=== PATIENT | female | born 1980 | race Caucasian/White ===

== ENCOUNTER 2016-05-24 18:43 | Emergency (ER) | payer SELFPAY ==
[~2016-05-24] VITALS: Ht 157.5 cm; Wt 86.2 kg
[~2016-05-24 18:43] MED LIST: ACHD5005 PO; ALPR.5T PO; ALPR0.5T PO; ALPR1T PO; BPR75T PO; CLON1TAB36 PO; CPR500T PO; CYCL10TA9 PO; DESV100T PO; DESV50TA PO; HYDR1TAB; HYDR1TAB PO; IBP800T PO; LAMO100T69 PO; METR500T PO; NAPR-243 PO; NF-ESOM40C PO; NITR-65 PO; PRAZ2CAP2 PO; PRAZ5CAP PO; PRD20T PO; SULF-222 PO; SULF1TAB38 PO; TOPI50TA37 PO; TRM50T PO; ZOLP10TA PO
--- NOTE | 2016-05-24 19:02 | ED Abdominal Pain ---
General Chief Complaint: Abdominal/GI Problems Stated Complaint: L SIDE ABD PAIN Nursing Triage Note: c/o LLQ abdomen pain x 4 months denies being evaluated by PCP as 'she hasn't been able to get in' Sepsis Screen: No Definite Risk Source of Information: Patient Exam Limitations: No Limitations History of Present Illness Time Seen By Provider: 19:02 Initial Comments 35-year-old female patient presents to the emergency department with complaints of 4 month onset of left lower quadrant abdominal pain. Patient denies nausea, vomiting, diarrhea, constipation, melena, or hematochezia. Denies urinary symptoms. Denies contacting her primary care physician for symptoms. Timing/Duration: Intermittent, Other (4 month onset) Severity/Quality: Aching, Cramping Location: LLQ Radiation: No Radiation Activities at Onset: None Modifying Factors: Worsens With Palpation Allergies and Home Medications Allergies Coded Allergies: clonazepam (Unverified Allergy, Unknown, 11/12/14) tramadol (Verified Allergy, Unknown, HIVES, 11/12/14) sertraline HCl (Verified Adverse Reaction, Mild, Feeling homicidal, ) Home Medications Ondansetron 8 Mg Tab.rapdis, 8 MG PO Q8H PRN for NAUSEA/VOMITING, #10 Ref 0 Prescribed by: MARY ROBBINS on 05/24/162051 Review of Systems Constitutional: No chills, No fever, No malaise Respiratory: No Symptoms Reported Cardiovascular: No Symptoms Reported Gastrointestinal: See HPI, Denies Abdomen Distended, Abdominal Pain, Denies Blood Streaked Stools, Denies Constipated, Denies Diarrhea, Denies Nausea, Denies Poor Appetite, Denies Poor Fluid Intake, Denies Rectal Bleeding, Denies Vomiting Genitourinary: Denies Burning, Denies Discharge, Denies Frequency, Denies Flank Pain, Denies Hematuria, Denies Pain Musculoskeletal: no symptoms reported Skin: no symptoms reported Psychiatric/Neurological: No Symptoms Reported All Other Systems Reviewed Negative Unless Noted: Yes (Negative excepted noted.) Past Orhbwks-Msvfvv-Rjtzni Hx Patient Social History Alcohol Use: Denies Use Recreational Drug Use: No Smoking Status: Current Everyday Smoker Type Used: Cigarettes Recent Foreign Travel: No Contact w/Someone Who Travel: No Recent Infectious Disease Expo: No Recent Hopitalizations: No Surgeries HX Surgeries: Yes (PART.HYST,2 C-SECT.,T&A,D&C,X1 ,X3 LAP FOR ENDOMETRIOSIS) Respiratory Hx Respiratory Disorders: No Cardiovascular Hx Cardiac Disorders: No Neurological Hx Neurological Disorders: No Reproductive System Hx Reproductive Disorders: Yes (ENDOMETRIOSIS,PID) Genitourinary Hx Genitourinary Disorders: Yes (PID) Gastrointestinal Hx Gastrointestinal Disorders: No Musculoskeletal Hx Musculoskeletal Disorders: No Endocrine Hx Endocrine Disorders: No HEENT HX ENT Disorders: No Cancer Hx Cancer: No Psychosocial Hx Psychiatric Problems: Yes Behavioral Health Disorders: Anxiety, Depression Integumentary HX Skin/Integumentary Disorder: No Blood Transfusions Hx Blood Disorders: No Adverse Reaction to a Blood Tr: No Reviewed Nursing Assessment Reviewed/Agree w Nursing PMH: Yes Family Medical History Significant Family History: No Pertinent Family Hx Physical Exam Vital Signs Capillary Refill : Less Than 3 Seconds General Appearance: WD/WN, no apparent distress HEENT: PERRL/EOMI, pharynx normal Neck: supple, normal inspection Respiratory: lungs clear, normal breath sounds, no respiratory distress Cardiovascular: normal peripheral pulses, regular rate, rhythm, no murmur Gastrointestinal: normal bowel sounds, soft, no organomegaly, No distended, guarding (left lower quadrant), No rebound, tenderness (left lower quadrant) Extremities: no pedal edema, normal capillary refill Back: normal inspection, no CVA tenderness Neurologic/Psychiatric: alert, normal mood/affect, oriented x 3 Skin: normal color, warm/dry Progress/Results/Core Measures Results/Orders Lab Results Laboratory Tests Test 05/24/16 19:15 Range/Units White Blood Count 9.8 4.3-11.0 10^3/uL Red Blood Count 4.76 4.35-5.85 10^6/uL Hemoglobin 14.9 11.5-16.0 G/DL Hematocrit 43 35-52 % Mean Corpuscular Volume 91 80-99 FL Mean Corpuscular Hemoglobin 31 25-34 PG Mean Corpuscular Hemoglobin Concent 35 32-36 G/DL Red Cell Distribution Width 13.6 10.0-14.5 % Platelet Count 214 130-400 10^3/uL Mean Platelet Volume 11.2 H 7.4-10.4 FL Neutrophils (%) (Auto) 50 42-75 % Lymphocytes (%) (Auto) 36 12-44 % Monocytes (%) (Auto) 6 0-12 % Eosinophils (%) (Auto) 7 0-10 % Basophils (%) (Auto) 1 0-10 % Neutrophils # (Auto) 4.9 1.8-7.8 X 10^3 Lymphocytes # (Auto) 3.5 1.0-4.0 X 10^3 Monocytes # (Auto) 0.6 0.0-1.0 X 10^3 Eosinophils # (Auto) 0.7 H 0.0-0.3 10^3/uL Basophils # (Auto) 0.1 0.0-0.1 10^3/uL Urine Color YELLOW Urine Clarity SLIGHTLY CLOUDY Urine pH 6 5-9 Urine Specific [place] 1.025 H 1.016-1.022 Urine Protein NEGATIVE NEGATIVE Urine Glucose (UA) NEGATIVE NEGATIVE Urine Ketones NEGATIVE NEGATIVE Urine Nitrite NEGATIVE NEGATIVE Urine Bilirubin NEGATIVE NEGATIVE Urine Urobilinogen 1 NORMAL MG/DL Urine Leukocyte Esterase 1+ H NEGATIVE Urine RBC (Auto) NEGATIVE NEGATIVE Urine RBC NONE /HPF Urine WBC 0-2 /HPF Urine Squamous Epithelial Cells 5-10 /HPF Urine Crystals NONE /LPF Urine Bacteria FEW H /HPF Urine Casts NONE /LPF Urine Mucus NEGATIVE /LPF Urine Culture Indicated NO Sodium Level 140 135-145 MMOL/L Potassium Level 4.1 3.6-5.0 MMOL/L Chloride Level 110 H 98-107 MMOL/L Carbon Dioxide Level 22 21-32 MMOL/L Anion Gap 8 5-14 MMOL/L Blood Urea Nitrogen 12 7-18 MG/DL Creatinine 0.86 0.60-1.30 MG/DL Estimat Glomerular Filtration Rate > 60 BUN/Creatinine Ratio 14 Glucose Level 112 H 70-105 MG/DL Calcium Level 8.9 8.5-10.1 MG/DL Total Bilirubin 0.4 0.1-1.0 MG/DL Aspartate Amino Transf (AST/SGOT) 18 5-34 U/L Alanine Aminotransferase (ALT/SGPT) 16 0-55 U/L Alkaline Phosphatase 62 40-136 U/L Total Protein 6.9 6.4-8.2 G/DL Albumin 3.9 3.2-4.5 G/DL Lipase 15 8-78 U/L My Orders Orders - MARY ROBBINS PA Urine Bedside (05/24/16 18:56) Cbc With Automated Diff (05/24/16 18:56) Comprehensive Metabolic Panel (05/24/16 18:56) Lipase (4/3/17 18:56) Ua Culture If Indicated (05/24/16 18:56) Saline Lock/Iv-Start (05/24/16 18:56) Acute Abd Series (05/24/16 20:15) Ketorolac Injection (Toradol Injection) (05/24/16 20:15) Ondansetron Injection (Zofran Injectio (05/24/16 20:15) Famotidine Injection (Pepcid Injection) (05/24/16 20:15) Iv Push Clean Out Driller Ed (05/24/16 ) Medications Given in ED Vital Signs/I&O Blood Pressure Mean: 89 Diagnostic Imaging Diagonstic Imaging: Xray Plain Films/CT/US/NM/MRI: abdomen Comments FINDINGS: Lungs are clear. There is no intraperitoneal free air. Bowel gas pattern is normal. There are no pathologic masses or calcifications. IMPRESSION: No acute abnormalities in the abdomen. Dictated by: Dictated on workstation # [id number] Reviewed: Reviewed by Me (radiology report reviewed by me) Departure Communication Progress Notes J and diagnostic findings discussed with the patient. She reports feeling better with medications. Plan for discharge to home. Patient instructed to follow-up with her primary care physician for recheck and further evaluation. Impression Impression: Primary Impression: Abdominal pain Qualified Codes: R10.32 - Left lower quadrant pain Disposition: HOME, SELF-CARE Condition: Improved Departure-Patient Inst. Decision time for Depature: 20:50 Referrals: [facility] (PCP/Family) Primary Care Physician Patient Instructions: Acute Abdomen (Belly Pain), Adult (DC) Add. Discharge Instructions: All discharge instructions reviewed with patient and/or family. Voiced understanding. Medications as instructed. Tylenol extra strength over-the- counter as directed for pain. Ibuprofen 800 mg by mouth every 8 hours as needed for pain. Drink plenty of fluids. Avoid spicy foods, fatty foods, carbonated beverages, caffeinated beverages. Avoid smoking and secondhand smoke. Do not eat within 2 hours of lying down. Follow-up with family practitioner for recheck and further evaluation. Return to the emergency department for worsened symptoms or any other concerns. Scripts Ondansetron (Ondansetron Odt) 8 Mg Tab.rapdis 8 MG PO Q8H Y for NAUSEA/VOMITING, #10 TAB 0 Refills Prov: MARY ROBBINS 05/24/16 MARY ROBBINS May 24, 2016 19:02
[2016-05-24 19:30] LABS: BASOPHILS # (AUTO) 0.1 10^3/uL (0.0-0.1); BASOPHILS % (AUTO) 1 % (0-10); EOSINOPHILS # (AUTO) 0.7 10^3/uL (0.0-0.3); EOSINOPHILS % (AUTO) 7 % (0-10); LYMPHOCYTES # (AUTO) 3.5 X 10^3 (1.0-4.0); LYMPHOCYTES % (AUTO) 36 % (12-44); MEAN CORPUSCULAR HEMOGLOBIN 31 PG (25-34); MEAN CORPUSCULAR HGB CONC 35 G/DL (32-36); MEAN CORPUSCULAR VOLUME 91 FL (80-99); MEAN PLATELET VOLUME 11.2 FL (7.4-10.4); MONOCYTES # (AUTO) 0.6 X 10^3 (0.0-1.0); MONOCYTES % (AUTO) 6 % (0-12); NEUTROPHILS # (AUTO) 4.9 X 10^3 (1.8-7.8); NEUTROPHILS % (AUTO) 50 % (42-75); PLATELET COUNT 214 10^3/uL (130-400); RED BLOOD COUNT 4.76 10^6/uL (4.35-5.85); RED CELL DISTRIBUTION WIDTH 13.6 % (10.0-14.5); WHITE BLOOD COUNT 9.8 10^3/uL (4.3-11.0)
[2016-05-24 19:32] LABS: BILIRUBIN,URINE NEGATIVE (NEGATIVE); KETONES,URINE NEGATIVE (NEGATIVE); LEUKOCYTE ESTERASE ,URINE 1+ (NEGATIVE); NITRITE,URINE NEGATIVE (NEGATIVE); PH,URINE 6 (5-9); PROTEIN,URINE NEGATIVE (NEGATIVE); UROBILINOGEN,URINE 1 MG/DL (NORMAL)
[2016-05-24 19:43] LABS: WBC,URINE 0-2 /HPF
[2016-05-24 19:53] LABS: ALANINE AMINOTRANSFERASE 16 U/L (0-55); ALBUMIN 3.9 G/DL (3.2-4.5); ANION GAP 8 MMOL/L (5-14); ASPARTATE AMINO TRANSFERASE 18 U/L (5-34); BILIRUBIN,TOTAL 0.4 MG/DL (0.1-1.0); BLOOD UREA NITROGEN 12 MG/DL (7-18); BUN/CREATININE RATIO 14; CALCIUM 8.9 MG/DL (8.5-10.1); CARBON DIOXIDE 22 MMOL/L (21-32); CHLORIDE 110 MMOL/L (98-107); CREATININE SERUM 0.86 MG/DL (0.60-1.30); GFR ESTIMATED > 60; GLUCOSE 112 MG/DL (70-105); LIPASE 15 U/L (8-78); POTASSIUM 4.1 MMOL/L (3.6-5.0); SODIUM 140 MMOL/L (135-145); TOTAL PROTEIN 6.9 G/DL (6.4-8.2)
[2016-05-24] MEDS ORDERED: KETOROLAC 30 MG/ML VIAL IVP STA (20:15)
[2016-05-24] MEDS ORDERED: ONDANSETRON 4 MG/2 ML (SDV) Z0FRAN IVP ONE (20:15)
[2016-05-24] MEDS ORDERED: FAMOTIDINE 20MG/2ML IV (PEPCID) IV STA (20:15)
--- NOTE | 2016-05-24 20:38 | Diagnostic Imaging Report ---
INDICATION: Left side abdominal pain. PA chest, supine and upright abdominal images are obtained. FINDINGS: Lungs are clear. There is no intraperitoneal free air. Bowel gas pattern is normal. There are no pathologic masses or calcifications. IMPRESSION: No acute abnormalities in the abdomen. Dictated by: Dictated on workstation # [id number]
[2016-05-24] MEDS ORDERED: ONDA8TAB13 PO (20:52)
[2016-05-24 20:57] VITALS: BP 115/74
--- OUTSIDE RECORDS SUMMARY | 2016-06-27 06:53 | XMS REPORT ---
Author Author SU NGUYEN Organization [employer] Address Unknown Phone Unavailable Care Team Providers Care Homemaker Companion Name Role Phone SU NGUYEN CP Unavailable Allergies, Adverse Reactions, Alerts Substance Reaction Event Type Zoloft Info Not Available Drug Allergy Ultram hives Drug Allergy Problems Problem Type Condition Code Onset Dates Condition Status Problem Attention deficit disorder of childhood with hyperactivity 314.01 Active Assessment Acute sinusitis J01.90 Active Problem Hormone replacement therapy (postmenopausal) V07.4 Active Problem Screening examination for venereal disease V74.5 Active Problem Nondependent tobacco use disorder 305.1 Active Problem Generalized hyperhidrosis 780.8 Active Problem Contusion of unspecified site 924.9 Active Problem Special screening for malignant neoplasms, vagina V76.47 Active Problem Unspecified menopausal and postmenopausal disorder 627.9 Active Medications Medication Code System Code Instructions Start Date End Date Status Dosage Xanax [facility] [address]-72 1 mg September 01, 2011 1 tablet by Oral route 3 times per day Augmentin [facility] [address]-84 875-125 MG Orally every 12 hrs Mar 21, 2015 Mar 31, 2015 1 tablet Pristiq [facility] [address]-35 25 MG Orally Once a day 2 tablets Procedures Procedure Coding System Code Date Office Visit, Est Pt., Level 3 CPT-4 59972 Mar 21, 2015 Vital Signs Date/Time: Mar 21, 2015 Temperature 98.4 F Weight 192.3 lbs Height 62.5 in BMI 34.61 Index Blood Pressure Diastolic 74 mmHg Blood Pressure Systolic 118 mmHg Cardiac Monitoring Heart Rate 84 bpm Results No Known Results Summary Purpose [employer] Submission
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
== END 2016-05-24 20:57 | disposition home or self-care (01) ==
LOC: EDUNIT# 18:43 → ER 18:44
DX: R10.32 Left lower quadrant pain (principal); F17.210 Nicotine dependence, cigarettes, uncomplicated
CPT/HCPCS: 36415; 74022; 80053; 81000; 83690; 84703; 85025; 96374; 96375

== ENCOUNTER 2018-06-28 07:59 | Emergency (ER) | payer OTHER ==
[~2018-06-28] VITALS: Ht 157.5 cm; Wt 86.2 kg
[~2018-06-28 07:59] MED LIST changes: +ONDA8TAB13 PO
[2018-06-28 08:12] VITALS: BP 135/78
[2018-06-28] MEDS ORDERED: ONDANSETRON 4 MG (ZOFRAN) ORAL DISSOLVE TAB PO ONE (08:30)
[2018-06-28] MEDS ORDERED: ONDA4TAB11 PO (08:32)
--- NOTE | 2018-06-28 08:32 | ED GI ---
General Chief Complaint: Fever-Adult/Adol Stated Complaint: FLU SYMPTOMS Nursing Triage Note: PT STATES FLU SYMPTOMS, STARTED TUESDAY WITH VOMITING AND DIARRHEA, SORE THROAT AND BODY ACHES. Sepsis Screen: Possible Sepsis Risk Source of Information: Patient Exam Limitations: No Limitations History of Present Illness Date Seen by Provider: June 28, 2018 Time Seen by Provider: 08:17 Initial Comments The patient presents to ER by private conveyance with chief complaint of the stomach flu. She since Tuesday, 3 days ago has been experiencing nausea, vomiting , diarrhea without blood in it, body aches and occasional fevers. She has been using Tylenol, ibuprofen, [place], Pepto-Bismol with poor relief of her nausea vomiting symptoms. She does not feel dehydrated yet and does not have to work the rest the week that she would like something to help with her nausea. She does have a history of C-sections 2, hysterectomy and a couple laparoscopic surgeries for endometriosis but nothing recent. Allergies and Home Medications Allergies Coded Allergies: clonazepam (Unverified Allergy, Unknown, 11/12/14) tramadol (Verified Allergy, Unknown, HIVES, 11/12/14) sertraline HCl (Verified Adverse Reaction, Mild, Feeling homicidal, ) Home Medications Ondansetron 8 Mg Tab.rapdis, 8 MG PO Q8H PRN for NAUSEA/VOMITING Prescribed by: MARY ROBBINS on 05/24/162051 Patient Home Medication List Home Medication List Reviewed: Yes Review of Systems Review of Systems Constitutional: chills; No diaphoresis; fever, malaise EENTM: No Blurred Vision, No Double Vision Respiratory: Denies Cough, Denies Shortness of Air Cardiovascular: Denies Chest Pain, Denies Edema Gastrointestinal: See HPI; Denies Abdomen Distended (diffuse); Abdominal Pain, Diarrhea, Nausea, Poor Fluid Intake, Vomiting Genitourinary: Denies Burning, Denies Discharge Musculoskeletal: No back pain, No joint pain Past Upwmpbe-Dksmak-Qcuctm Hx Patient Social History Type Used: Cigarettes Recent Foreign Travel: No Contact w/Someone Who Travel: No Recent Infectious Disease Expo: No Recent Hopitalizations: No Past Medical History : No Reproductive Disorders: Yes (ENDOMETRIOSIS,PID) PRESS LOADER History: Hysterectomy Anxiety, Depression Adverse Reaction/Blood Tranf: No Family Medical History No Pertinent Family Hx Physical Exam Vital Signs Capillary Refill : Less Than 3 Seconds Height/Weight/BMI Height: 5'2.00" Weight: 190lbs. oz. 86.891885do; 34.75 BMI Method:Stated General Appearance: WD/WN, no apparent distress HEENT: normal ENT inspection, pharynx normal (moist mucous membranes) Neck: full range of motion, normal inspection Respiratory: no respiratory distress, no accessory muscle use Cardiovascular: normal peripheral pulses, regular rate, rhythm, no edema Gastrointestinal: normal bowel sounds, soft, no organomegaly, tenderness ( diffusely mildly tender but no mesenteric signs, psoas sign, Rovsing or McBurney 's point tenderness/rebound tenderness.) Extremities: normal inspection, no pedal edema, normal capillary refill Neurologic/Psychiatric: alert, normal mood/affect, oriented x 3 Skin: normal color, warm/dry Progress/Results/Core Measures Results/Orders Blood Pressure Mean: 97 Progress Progress Note : Time: 08:28 Progress Note Zofran ODT. She is not dehydrated although we offered IV fluids she is probably wisely declined them. She would benefit from Imodium and Zofran. Counseled conservative care. Departure Impression Primary Impression: Viral pharyngitis Additional Impression: Gastroenteritis and colitis, viral Disposition: 01 HOME, SELF-CARE Condition: Stable Departure-Patient Inst. Decision time for Depature: 08:29 Referrals: [facility] (PCP/Family) Primary Care Physician Patient Instructions: Viral Gastroenteritis, Viral Pharyngitis (DC) Add. Discharge Instructions: Gargle salt water as often as necessary to help reduce the swelling in your throat and reduce the pain. You may also use hot tea's with Vitale and or honey. I would encourage to drink lots of fluids especially sports drinks such as Powerade or Gatorade. Use the Zofran 1 tablet every 6 hours as needed under the tongue for nausea and/ or vomiting. Use Imodium 2 tablets to start then one tablet every 4 hours that you're having watery diarrhea. For the body aches and fever use 1000 mg of Tylenol every 8 hours along with 800 mg of ibuprofen/Motrin every 8 hours. Instead of ibuprofen you could use 2 tablets of Naprosyn every 12 hours. If your symptoms persist beyond 7 days or you feel that you are becoming dehydrated then you can follow-up with your primary care physician. All discharge instructions reviewed with patient and/or family. Voiced understanding. Scripts Ondansetron (Ondansetron Odt) 4 Mg Tab.rapdis 4 MG PO Q6H PRN for NAUSEA/VOMITING, #12 TAB 0 Refills Prov: MALATHI MAZARIEGOS 06/28/18 MALATHI MAZARIEGOS June 28, 2018 08:32
--- OUTSIDE RECORDS SUMMARY | 2018-06-28 11:03 | XMS REPORT | Continuity of Care Document ---
Author Organization Unknown Address Unknown Allergies Active Description Code Type Severity Reaction Onset Reported/Identified Relationship to Patient Clinical Status Yes sertraline HCl [id number] Drug Allergy Mild Feeling homicid 11/12/2014 Yes clonazepam [id number] Drug Allergy Unknown N/A 11/12/2014 Yes KLONIPIN KLONIPIN Unknown N/A 11/12/2014 Yes tramadol [id number] Drug Allergy Unknown HIVES 11/12/2014 Medications There is no data. Problems Date Dx Coded Attending Type Code [...] Ot R10.32 LEFT LOWER QUADRANT PAIN Procedures There is no data. Results Test Result Range Complete blood count (CBC) with automated white blood cell (WBC) differential - 05/24/16 19:15 Blood leukocytes automated count (number/volume) 9.8 10*3/uL 4.3-11.0 Blood erythrocytes automated count (number/volume) 4.76 10*6/uL 4.35-5.85 Venous blood hemoglobin measurement (mass/volume) 14.9 [...] Automated blood platelet mean volume measurement 11.2 [foz_us] 7.4-10.4 Automated blood neutrophils/100 leukocytes 50 % [...] Urine pH measurement by test strip 6 5-9 Specific gravity of urine by test strip 1.025 1.016- 1.022 Urine protein assay by test strip, semi-quantitative [...] Serum or plasma sodium measurement (moles/volume) 140 mmol/L 135-145 Serum or plasma potassium measurement (moles/volume) 4.1 mmol/L 3.6-5.0 Serum or plasma chloride measurement (moles/volume) 110 mmol/L 98-107 Carbon dioxide 22 mmol/L 21-32 Serum or plasma anion gap determination (moles/volume) 8 mmol/L 5-14 Serum or plasma urea nitrogen measurement (mass/volume) 12 mg/dL 7-18 Serum or plasma creatinine measurement (mass/volume) 0.86 mg/dL 0.60-1.30 Serum or plasma urea nitrogen/creatinine mass [...] Status Pt. Type Provider Facility Loc./Unit Complaint [id number] 05/24/2016 18:44:00 05/24/2016 20:57:00 DIS Outpatient MARY COFFMAN [facility] ER L SIDE ABD PAIN [id number] 11/12/2014 13:54:00 11/12/2014 16:05:00 DIS Outpatient SEPULVEDA DOJAJA D [facility] SDC DIARRHEA [id number] 11/08/2014 05:37:00 11/08/2014 23:59:59 CLS Outpatient SEPULVEDA DOJAJA [facility] PREOP DIARRHEA [id number] 10/14/2014 11:24:00 10/14/2014 23:59:59 CLS Outpatient AMY ROBERTS, MAREK Atkinson [facility] RAD PELVIC PAIN [id number] 10/23/2013 15:36:00 10/23/2013 16:57:00 DIS Emergency KRISTINA STORY MD [facility] ER R ARM RASH [id number] 11/29/2012 19:08:00 11/29/2012 21:05:00 DIS Emergency MARY COFFMAN [facility] ER BACK PAIN [id number] 10/10/2014 11:09:00 Document Registration [id number] 10/10/2014 11:09:00 Document Registration [id number] 06/21/2011 09:35:00 Document Registration [id number] 03/12/2011 10:17:00 Document Registration [id number] 12/19/2010 15:41:00 Document Registration [id number] 07/10/2010 15:55:00 Document Registration [id number] 04/04/2010 12:52:00 Document Registration [id number] 02/12/2010 10:58:00 Document Registration [id number] 01/03/2010 02:18:00 Document Registration [id number] 12/19/2009 00:09:00 Document Registration
== END 2018-06-28 08:44 | disposition home or self-care (01) ==
LOC: EDUNIT# 07:59 → ER 08:00
DX: J02.9 Acute pharyngitis, unspecified (principal); A08.4 Viral intestinal infection, unspecified; F41.9 Anxiety disorder, unspecified; F32.9 Major depressive disorder, single episode, unspecified; Z88.8 Allergy status to other drugs, medicaments and biological substances; Z88.6 Allergy status to analgesic agent; Z90.49 Acquired absence of other specified parts of digestive tract; Z98.890 Other specified postprocedural states; Z87.448 Personal history of other diseases of urinary system
CPT/HCPCS: 99282

== ENCOUNTER 2018-07-15 23:50 | Emergency (ER) | payer OTHER | END 2018-07-16 01:02 | disposition home or self-care (01) | LOC: ER 07-16 01:02 ==

== ENCOUNTER 2018-12-30 19:20 | Emergency (ER) | payer OTHER ==
[~2018-12-30] VITALS: Ht 157 cm; Wt 84.0 kg
[~2018-12-30 19:20] MED LIST changes: +MELO15TA14 PO; +ONDA4TAB11 PO
--- NOTE | 2018-12-30 19:30 | ED Lower Extremity ---
General Stated Complaint: L FOOT PAIN Source: patient Exam Limitations: no limitations History of Present Illness Date Seen by Provider: Dec 30, 2018 Time Seen by Provider: 19:29 Initial Comments To ER with reports of left lateral ankle and foot pain that extends up to the knee and down the foot. She's been unable to bear weight. This began when she was at her cousin's bar and slipped off the wheelchair ramp inverting the foot/ankle. Onset: just prior to arrival Severity: moderate Pain/Injury Location: left foot, left ankle Method of Injury: fell Modifying Factors: Worse With Movement Allergies and Home Medications Allergies Coded Allergies: clonazepam (Unverified Allergy, Unknown, 11/12/14) tramadol (Verified Allergy, Unknown, HIVES, 11/12/14) sertraline HCl (Verified Adverse Reaction, Mild, Feeling homicidal, 18/01) Home Medications Meloxicam 15 Mg Tablet, 15 MG PO DAILY Prescribed by: VIKRAM MACDONALD on 07/16/18 0025 Ondansetron 8 Mg Tab.rapdis, 8 MG PO Q8H PRN for NAUSEA/VOMITING Prescribed by: MARY ROBBINS on 05/24/162051 Ondansetron 4 Mg Tab.rapdis, 4 MG PO Q6H PRN for NAUSEA/VOMITING Prescribed by: MALATHI MAZARIEGOS on 06/28/18 0832 Patient Home Medication List Home Medication List Reviewed: Yes Review of Systems Constitutional: see HPI EENTM: see HPI Respiratory: no symptoms reported Cardiovascular: no symptoms reported Genitourinary: no symptoms reported Musculoskeletal: see HPI Skin: no symptoms reported Psychiatric/Neurological: No Symptoms Reported Past Jhylwaz-Hhqnzx-Tmglnp Hx Patient Social History Alcohol Beverage of Choice: Beer, [place], Wine Type Used: Cigarettes Recent Foreign Travel: No Contact w/Someone Who Travel: No Recent Hopitalizations: No Seasonal Allergies Seasonal Allergies: Yes Past Medical History Surgeries: Yes Abdominal, Appendectomy, Section, Hysterectomy, Tonsillectomy Respiratory: No Cardiac: No Neurological: No Reproductive Disorders: Yes Female Reproductive Disorders: Endometriosis EQUIPMENT MECHANIC History: Hysterectomy Genitourinary: No Gastrointestinal: No Musculoskeletal: Yes (FRACTURES --NO SURGERY REQUIRED) Fractures Endocrine: No Cancer: Yes Cervical, Uterine Did You Recieve Any Treatments: Yes What Type of Treatment Did You: Surgical Intervention Psychosocial: Yes Anxiety, Depression Integumentary: No Blood Disorders: No Adverse Reaction/Blood Tranf: No Family Medical History No Pertinent Family Hx Physical Exam Vital Signs Vital Signs - First Documented 12/30/18 19:26 Temp 36.7 Pulse 98 Resp 20 B/P (MAP) 116/84 (95) Pulse Ox 98 O2 Delivery Room Air Capillary Refill : Height, Weight, BMI Height: 5'2.00" Weight: 190lbs. oz. 86.837727jw; 34.75 BMI Method:Stated General Appearance: WD/WN, no apparent distress Respiratory: no respiratory distress, no accessory muscle use Hips: bilateral hip non-tender, bilateral hip normal inspection, bilateral hip normal range of motion Legs: bilateral leg non-tender, bilateral leg normal inspection, bilateral leg normal range of motion Knees: bilateral knee non-tender, bilateral knee normal inspection, bilateral knee normal range of motion Ankles: left ankle pain, left ankle soft tissue tenderness, left ankle swelling Feet: left foot pain Neurologic/Psychiatric: alert, normal mood/affect, oriented x 3 Skin: normal color, warm/dry Progress/Results/Core Measures Results/Orders My Orders Orders - RHIANNON MANZO APRN Tibia/Fibula, Left, 2 Views (12/30/18 19:26) Foot, Left, 3 Views (12/30/18 19:26) Vital Signs/I&O 12/30/18 12/30/18 19:26 20:05 Temp 36.7 36.7 Pulse 98 98 Resp 20 20 B/P (MAP) 116/84 (95) 116/84 (95) Pulse Ox 98 98 O2 Delivery Room Air Departure Impression Primary Impression: Sprain and strain of ankle Disposition: 01 HOME, SELF-CARE Condition: Stable Departure-Patient Inst. Decision time for Depature: 19:53 Referrals: [facility] (PCP/Family) Primary Care Physician Patient Instructions: Ankle Sprain (DC) Add. Discharge Instructions: 1. Keep the compression wrap on the ankle times except when showering for the next 2 days. Keep the foot elevated as much as possible for the next 2 days. Crutches as needed when walking for the next 2 days. RHIANNON MANZO APRN Dec 30, 2018 19:30 POS
--- NOTE | 2018-12-30 19:44 | Diagnostic Imaging Report ---
CLINICAL HISTORY: Left foot pain. Slipped and fell. COMPARISON: 07/16/2018 TECHNIQUE: 3 views of the left foot. FINDINGS: There is no acute fracture or dislocation of the left foot. Alignment is anatomic. The imaged joint spaces are preserved. No joint effusion is seen in the left ankle. The surrounding soft tissues are unremarkable. IMPRESSION: 1. No acute fracture or dislocation in the left foot. Dictated by: Dictated on workstation # [id number]
--- NOTE | 2018-12-30 19:46 | Diagnostic Imaging Report ---
CLINICAL HISTORY: Fall. Left leg pain. COMPARISON: None TECHNIQUE: 2 views of the left fibula and tibia. FINDINGS: There is no acute fracture or dislocation of the left tibia and fibula. Alignment is anatomic. The imaged joint spaces are preserved. The soft tissues are unremarkable. IMPRESSION: 1. No acute fracture or dislocation in the left tibia and fibula. Dictated by: Dictated on workstation # [id number]
[2018-12-30 20:05] VITALS: BP 116/84
== END 2018-12-30 20:07 | disposition home or self-care (01) ==
LOC: EDUNIT# 19:20 → ER 19:22
DX: S93.402A Sprain of unspecified ligament of left ankle, initial encounter (principal); F41.9 Anxiety disorder, unspecified; F32.9 Major depressive disorder, single episode, unspecified; Z88.8 Allergy status to other drugs, medicaments and biological substances; Z88.5 Allergy status to narcotic agent; Z90.710 Acquired absence of both cervix and uterus; Z90.49 Acquired absence of other specified parts of digestive tract; Z90.89 Acquired absence of other organs; Z85.41 Personal history of malignant neoplasm of cervix uteri; Z85.42 Personal history of malignant neoplasm of other parts of uterus; W01.0XXA Fall on same level from slipping, tripping and stumbling without subsequent striking against object, initial encounter; Y92.511 Restaurant or cafe as the place of occurrence of the external cause
CPT/HCPCS: 73590; 73630

== ENCOUNTER 2022-09-22 06:29 | Emergency (ER) | payer OTHER ==
[~2022-09-22] VITALS: Ht 157.5 cm; Wt 87.5 kg
--- NOTE | 2022-09-22 06:42 | ED Lower Extremity ---
General Chief Complaint: Lower Extremity Stated Complaint: FALL/RIGHT KNEE PAIN Source: patient Exam Limitations: no limitations History of Present Illness Date Seen by Provider: Sep 22, 2022 Time Seen by Provider: 06:34 Initial Comments 42-year-old female presents to the emergency department for right knee pain. She had injured it in the past and occasionally has swelling in the area however yesterday she fell in the shower. She has been ambulatory since that time. She complains of pain to the inferior portion of the right knee. All other systems reviewed and negative except documented per HPI. Voice recognition software was used to help create this chart Allergies and Home Medications Allergies Coded Allergies: clonazepam (Unverified Allergy, Unknown, 11/12/14) tramadol (Verified Allergy, Unknown, HIVES, 11/12/14) sertraline HCl (Verified Adverse Reaction, Mild, Feeling homicidal, 12/18/10) Patient Home Medication List Home Medication List Reviewed: Yes Meloxicam (Mobic) 15 Mg Tablet, 15 MG PO DAILY Prescribed by: VIKRAM MACDONALD on 07/16/18 0025 Ondansetron (Ondansetron Odt) 8 Mg Tab.rapdis, 8 MG PO Q8H PRN for NAUSEA/VOMITING Prescribed by: MARY ROBBINS on 05/24/16 205 Ondansetron (Ondansetron Odt) 4 Mg Tab.rapdis, 4 MG PO Q6H PRN for NAUSEA/VOMITING Prescribed by: MALATHI MAZARIEGOS on 06/28/18 0832 Review of Systems Constitutional: see HPI Past Xkhjqrh-Ynnuwr-Jxjrvg Hx Patient Social History Tobacco Use?: No Use of E-Cig and/or Vaping dev: No Substance use?: No Alcohol Use?: No Immunizations Up To Date Tetanus Booster (TDap): Unknown PED Vaccines UTD: Yes Seasonal Allergies Seasonal Allergies: Yes Past Medical History Surgeries: Yes Abdominal, Appendectomy, Section, Hysterectomy, Tonsillectomy Respiratory: No Cardiac: No Neurological: No Reproductive Disorders: Yes Female Reproductive Disorders: Endometriosis [employer]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00" Weight: 190lbs. oz. 86.208650ky; 34.00 BMI Method:Stated General Appearance: WD/WN, no apparent distress Legs: bilateral leg non-tender, bilateral leg normal inspection, bilateral leg normal range of motion Knees: right knee other (Tenderness to palpation inferior portion of the right knee. Negative anterior posterior drawer varus valgus stress testing Bola and Jack testing. Neurovascular motor and sensory intact distally.) Ankles: bilateral ankle non-tender, bilateral ankle normal inspection, bilateral ankle normal range of motion Feet: bilateral foot non-tender, bilateral foot normal inspection, bilateral foot normal range of motion Neurologic/Tendon: normal sensation, normal motor functions, normal tendon functions Neurologic/Psychiatric: alert, oriented x 3 Skin: normal color, warm/dry Progress/Results/Core Measures Results/Orders My Orders Orders - DIONICIORAFA Guthrie DO Knee, Right, 3 Views (09/22/22 06:40) Vital Signs/I&O 09/22/22 06:34 Temp 36.4 Pulse 76 Resp 16 B/P (MAP) 132/89 (103) Pulse Ox 98 O2 Delivery Room Air Departure Communication (Admissions) X-rays are negative for any acute abnormality. Exam is reassuring and she has been ambulatory. Supportive care with Ortho follow-up Impression Primary Impression: Sprain of knee Qualified Codes: S83.91XA - Sprain of unspecified site of right knee, initial encounter Disposition: HOME, SELF-CARE Condition: Stable Departure-Patient Inst. Referrals: [facility] (PCP/Family) Primary Care Physician RIP MA MD Patient Instructions: Knee Sprain (DC) Add. Discharge Instructions: Your x-rays are negative for any fractures or dislocations. Continue to bear weight as tolerated. Ice the area and elevate it when not in use. Use ibuprofen and Tylenol for pain. Return to the emergency department for any severe concerns. Follow-up with orthopedics by calling to schedule an appointment. All discharge instructions reviewed with patient and/or family. Voiced understanding. RAFA GREENBERG DO Sep 22, 2022 06:42
[2022-09-22 07:05] VITALS: BP 132/89
--- NOTE | 2022-09-22 07:35 | Diagnostic Imaging Report ---
EXAMINATION: Right knee radiographs, 3 views. COMPARISON: None. HISTORY: 42-year-old female, right knee pain. Fall yesterday. FINDINGS: There is no identified acute fracture. The joint spaces are well preserved. There is no knee joint effusion. There is no radiopaque foreign body. IMPRESSION: Unremarkable radiographs of the right knee. Dictated by: Dictated on workstation # [id number]
== END 2022-09-22 07:05 | disposition home or self-care (01) ==
LOC: EDUNIT# 06:29 → ER 06:31
DX: S83.91XA Sprain of unspecified site of right knee, initial encounter (principal); Z28.311 Partially vaccinated for COVID-19; W18.2XXA Fall in (into) shower or empty bathtub, initial encounter; Y93.E1 Activity, personal bathing and showering
CPT/HCPCS: 73562